=== PATIENT | female | born 1995 | race African-American/Black ===

== ENCOUNTER 2016-02-23 16:51 | Emergency (ER) | payer MEDICAID ==
[2014-11-29 07:16] VITALS: BMI 28.8
[~2016-02-23 16:51] MED LIST: FERROUS SULFAT325 MG PO; IBUPROFEN600 MG PO; PERCOCET 5-3251 TAB PO; PRENAVITE1 TAB PO
[2016-02-23 17:58] LABS: BASOPHILS 0.1 % (0.0-2.0); EOSINOPHILS 3.2 % (0-7); HEMATOCRIT 31.7 % (36.0-48.0); HEMOGLOBIN 9.7 g/dL (12-16); IMMATURE GRANULOCYTES 1.5 % (0-5); LYMPHOCYTES 12.3 % (15-50); MCH 24.7 pg (26.0-34.0); MCHC 30.6 g/dL (31.0-37.0); MCV 80.9 fL (80.0-100.0); MEAN PLATELET VOLUME 9.9 fL (7.4-10.4); MONOCYTES 11.6 % (2-11); NEUTROPHILS 71.3 % (40-80); PLATELET COUNT 188 10x3/uL (130-400); RBC 3.92 10x6/uL (4.00-5.40); RDW 13.5 % (11.5-14.5); WBC 7.8 10x3/uL (4.8-10.8)
[2016-02-23 18:23] LABS: ALKALINE PHOSPHATASE 87 U/L (46-116); ALT (SGPT) 15 U/L (10-68); BILIRUBIN - TOTAL 0.42 mg/dL (0.2-1.3); CALC OSMOLALITY 274 mosm/kg (275-300); CARBON DIOXIDE 25.5 mmol/L (21.0-32.0); CHLORIDE - SERUM 104 mmol/L (98-107); CREATININE - SERUM 0.3 mg/dL (0.6-1.3); GLUCOSE 79 mg/dL (74-106); POTASSIUM - SERUM 3.4 mmol/L (3.5-5.1); PROTEIN - SERUM 7.1 g/dL (6.4-8.2); SODIUM 140 mmol/L (136-145); UREA NITROGEN 4 mg/dL (7-18); eGFR NON AFRICAN AMERICAN > 90 mL/min (90-120)
[2016-03-11] MEDS ORDERED: ZOFRAN4 MG PO (11:01)
== END 2016-02-23 22:16 | disposition home or self-care (01) ==
LOC: D.ER 16:51
PROVIDERS: Physician Assistant
DX: J06.9 Acute upper respiratory infection, unspecified (principal)

== ENCOUNTER → 2016-03-11 10:14 | Outpatient (CLI) | payer MEDICAID ==
[2014-11-29 07:16] VITALS: BMI 28.8
[~2016-03-11 10:14] MED LIST changes: +ZOFRAN4 MG PO
[2016-03-11 11:24] LABS: APPEARANCE CLEAR (CLEAR); BILIRUBIN NEGATIVE (NEGATIVE); COLOR YELLOW (YELLOW); GLUCOSE NEGATIVE (NEGATIVE); KETONE NEGATIVE (NEGATIVE); LEUKOCYTE ESTERASE 1+ (NEGATIVE); NITRITE NEGATIVE (NEGATIVE); PROTEIN NEGATIVE (NEGATIVE); SPECIFIC GRAVITY 1.005 (1.005-1.020)
[2016-03-11 11:25] LABS: BACTERIA FEW /hpf (NONE SEEN); EPITHELIAL CELLS 0-5 /hpf (0-5); MUCUS <1+ /lpf (NONE SEEN)
== END | disposition home or self-care (01) ==
LOC: D.LDO 10:14
PROVIDERS: Obstetrics & Gynecology
DX: O26.90 Pregnancy related conditions, unspecified, unspecified trimester (principal); R11.2 Nausea with vomiting, unspecified; R10.30 Lower abdominal pain, unspecified

== ENCOUNTER → 2016-04-05 11:20 | Outpatient (CLI) | payer MEDICAID ==
[2014-11-29 07:16] VITALS: BMI 28.8
[2016-04-05 13:13] LABS: APPEARANCE CLOUDY (CLEAR); BILIRUBIN NEGATIVE (NEGATIVE); COLOR YELLOW (YELLOW); GLUCOSE 50 mg/dL (NEGATIVE); KETONE NEGATIVE (NEGATIVE); LEUKOCYTE ESTERASE TRACE (NEGATIVE); NITRITE NEGATIVE (NEGATIVE); PROTEIN NEGATIVE (NEGATIVE)
[2016-04-05 13:15] LABS: WHITE CELLS - URINE 0-5 /hpf (0-5)
[2016-04-05 13:16] LABS: AMORPHOUS SEDIMENT >1+ /lpf (NONE SEEN); BACTERIA FEW /hpf (NONE SEEN); EPITHELIAL CELLS 0-5 /hpf (0-5); RED CELLS - URINE 0-5 /hpf (0-5)
== END | disposition home or self-care (01) ==
LOC: D.LDO 11:20
PROVIDERS: Specialist
DX: Z34.83 Encounter for supervision of other normal pregnancy, third trimester (principal); Z3A.32 32 weeks gestation of pregnancy; R10.30 Lower abdominal pain, unspecified

== ENCOUNTER → 2016-04-08 15:55 | Outpatient (CLI) | payer MEDICAID ==
[2014-11-29 07:16] VITALS: BMI 28.8
== END | disposition home or self-care (01) ==
LOC: D.ER 15:55 → D.LDO 15:55
DX: O36.8130 Decreased fetal movements, third trimester, not applicable or unspecified (principal); Z3A.32 32 weeks gestation of pregnancy; O60.03 Preterm labor without delivery, third trimester

== ENCOUNTER 2016-04-19 21:57 | Outpatient (CLI) | payer SELFPAY ==
[2014-11-29 07:16] VITALS: BMI 28.8
[2016-04-19 23:22] LABS: APPEARANCE HAZY (CLEAR); BACTERIA FEW /hpf (NONE SEEN); BILIRUBIN NEGATIVE (NEGATIVE); COLOR YELLOW (YELLOW); EPITHELIAL CELLS 0-5 /hpf (0-5); GLUCOSE 50 mg/dL (NEGATIVE); KETONE NEGATIVE (NEGATIVE); LEUKOCYTE ESTERASE 1+ (NEGATIVE); NITRITE NEGATIVE (NEGATIVE); PROTEIN NEGATIVE (NEGATIVE); RED CELLS - URINE NONE SEEN /hpf (0-5); SPECIFIC GRAVITY 1.015 (1.005-1.020); UROBILINOGEN NORMAL (NORMAL)
== END 2016-04-19 23:58 | disposition home or self-care (01) ==
LOC: D.LDO 21:57 → D.LD 21:58 → D.LDO 23:58
PROVIDERS: Specialist
DX: Z34.83 Encounter for supervision of other normal pregnancy, third trimester (principal); Z3A.34 34 weeks gestation of pregnancy

== ENCOUNTER → 2016-04-24 19:50 | Outpatient (CLI) | payer SELFPAY ==
[2014-11-29 07:16] VITALS: BMI 28.8
[2016-04-24 20:47] LABS: APPEARANCE CLEAR (CLEAR); BILIRUBIN NEGATIVE (NEGATIVE); COLOR YELLOW (YELLOW); GLUCOSE NEGATIVE (NEGATIVE); KETONE NEGATIVE (NEGATIVE); LEUKOCYTE ESTERASE 1+ (NEGATIVE); NITRITE NEGATIVE (NEGATIVE); PROTEIN NEGATIVE (NEGATIVE); SPECIFIC GRAVITY 1.015 (1.005-1.020); UROBILINOGEN NORMAL (NORMAL)
[2016-04-24 20:48] LABS: RED CELLS - URINE 0-5 /hpf (0-5); WHITE CELLS - URINE 25-50 /hpf (0-5)
[2016-04-24 20:49] LABS: BACTERIA MODERATE /hpf (NONE SEEN); MUCUS <1+ /lpf (NONE SEEN)
[2016-04-27 03:08] LABS: CHLAMYDIA TRACHOMATIS, NAA Negative (Negative)
== END | disposition home or self-care (01) ==
LOC: D.LDO 19:50
PROVIDERS: Obstetrics & Gynecology
DX: Z34.83 Encounter for supervision of other normal pregnancy, third trimester (principal); Z3A.35 35 weeks gestation of pregnancy

== ENCOUNTER → 2016-04-28 22:41 | Outpatient (CLI) | payer SELFPAY ==
[2014-11-29 07:16] VITALS: BMI 28.8
== END | disposition home or self-care (01) ==
LOC: D.LDO 22:41
DX: O98.313 Other infections with a predominantly sexual mode of transmission complicating pregnancy, third trimester (principal); Z3A.35 35 weeks gestation of pregnancy

== ENCOUNTER → 2016-05-01 22:19 | Outpatient (CLI) | payer SELFPAY ==
[2014-11-29 07:16] VITALS: BMI 28.8
== END | disposition home or self-care (01) ==
LOC: D.LDO 22:19
DX: O26.899 Other specified pregnancy related conditions, unspecified trimester (principal); R10.30 Lower abdominal pain, unspecified; R10.2 Pelvic and perineal pain

== ENCOUNTER → 2016-05-04 19:52 | Outpatient (CLI) | payer SELFPAY ==
[2014-11-29 07:16] VITALS: BMI 28.8
[2016-05-04 20:08] LABS: APPEARANCE CLOUDY (CLEAR); BILIRUBIN NEGATIVE (NEGATIVE); COLOR YELLOW (YELLOW); GLUCOSE NEGATIVE (NEGATIVE); KETONE NEGATIVE (NEGATIVE); LEUKOCYTE ESTERASE 2+ (NEGATIVE); NITRITE NEGATIVE (NEGATIVE); PH 6.5 (5.0-6.0); PROTEIN NEGATIVE (NEGATIVE); SPECIFIC GRAVITY 1.015 (1.005-1.020); UROBILINOGEN NORMAL (NORMAL)
[2016-05-04 20:18] LABS: BACTERIA MANY /hpf (NONE SEEN); GRANULAR CAST OCC /lpf (NONE SEEN); HYALINE CAST OCC /lpf (NONE SEEN); MUCUS <1+ /lpf (NONE SEEN); RED CELLS - URINE OCC /hpf (0-5); WHITE CELLS - URINE >50 /hpf (0-5)
== END | disposition home or self-care (01) ==
LOC: D.LDO 19:52
PROVIDERS: Obstetrics & Gynecology
DX: Z34.83 Encounter for supervision of other normal pregnancy, third trimester (principal); Z3A.36 36 weeks gestation of pregnancy

== ENCOUNTER 2016-05-10 22:11 | Outpatient (CLI) | payer MEDICAID ==
[2014-11-29 07:16] VITALS: BMI 28.8
[2016-05-10 23:11] LABS: APPEARANCE HAZY (CLEAR); BACTERIA MANY /hpf (NONE SEEN); BILIRUBIN NEGATIVE (NEGATIVE); COLOR YELLOW (YELLOW); EPITHELIAL CELLS 0-5 /hpf (0-5); GLUCOSE NEGATIVE (NEGATIVE); KETONE NEGATIVE (NEGATIVE); LEUKOCYTE ESTERASE 2+ (NEGATIVE); NITRITE NEGATIVE (NEGATIVE); PROTEIN TRACE mg/dL (NEGATIVE); RED CELLS - URINE 0-5 /hpf (0-5); UROBILINOGEN NORMAL (NORMAL); WHITE CELLS - URINE >50 /hpf (0-5)
== END 2016-05-11 00:09 ==
LOC: D.LDO 22:11 → D.LD 23:51 → D.LDO 05-11 00:09
PROVIDERS: Specialist
DX: O26.899 Other specified pregnancy related conditions, unspecified trimester (principal); R10.2 Pelvic and perineal pain

== ENCOUNTER → 2016-05-15 21:20 | Outpatient (CLI) | payer MEDICAID ==
[2016-05-15 21:59] LABS: APPEARANCE HAZY (CLEAR); BILIRUBIN NEGATIVE (NEGATIVE); COLOR YELLOW (YELLOW); GLUCOSE 100 mg/dL (NEGATIVE); KETONE NEGATIVE (NEGATIVE); LEUKOCYTE ESTERASE 2+ (NEGATIVE); NITRITE NEGATIVE (NEGATIVE); PROTEIN NEGATIVE (NEGATIVE); SPECIFIC GRAVITY 1.015 (1.005-1.020); UROBILINOGEN NORMAL (NORMAL)
[2016-05-15 22:01] LABS: BACTERIA MANY /hpf (NONE SEEN); MUCUS <1+ /lpf (NONE SEEN); RED CELLS - URINE 0-5 /hpf (0-5); WHITE CELLS - URINE >50 /hpf (0-5)
== END | disposition home or self-care (01) ==
LOC: D.LDO 21:20
PROVIDERS: Obstetrics & Gynecology
DX: Z34.83 Encounter for supervision of other normal pregnancy, third trimester (principal); R10.2 Pelvic and perineal pain; Z3A.38 38 weeks gestation of pregnancy

== ENCOUNTER → 2016-05-24 15:51 | Outpatient (CLI) | payer MEDICAID ==
[2014-11-29 07:16] VITALS: BMI 28.8
[2016-05-24 17:40] LABS: APPEARANCE HAZY (CLEAR); BILIRUBIN NEGATIVE (NEGATIVE); COLOR YELLOW (YELLOW); GLUCOSE NEGATIVE (NEGATIVE); KETONE NEGATIVE (NEGATIVE); LEUKOCYTE ESTERASE 2+ (NEGATIVE); NITRITE NEGATIVE (NEGATIVE); PROTEIN TRACE mg/dL (NEGATIVE)
[2016-05-24 17:41] LABS: BACTERIA MANY /hpf (NONE SEEN); RED CELLS - URINE 0-5 /hpf (0-5); WHITE CELLS - URINE >50 /hpf (0-5)
[2016-05-24 17:42] LABS: MUCUS <1+ /lpf (NONE SEEN)
== END | disposition home or self-care (01) ==
LOC: D.LDO 15:51
PROVIDERS: Obstetrics & Gynecology
DX: Z34.83 Encounter for supervision of other normal pregnancy, third trimester (principal); Z3A.39 39 weeks gestation of pregnancy; M54.9 Dorsalgia, unspecified; N85.8 Other specified noninflammatory disorders of uterus

== ENCOUNTER 2016-06-01 02:46 | Emergency (ER) | payer MEDICAID ==
[2014-11-29 07:16] VITALS: BMI 28.8
== END 2016-06-01 04:00 | disposition home or self-care (01) ==
LOC: D.ER 02:46
DX: G89.18 Other acute postprocedural pain (principal)

== ENCOUNTER 2016-06-06 18:52 | Emergency (ER) | payer MEDICAID ==
[2016-06-06 21:35] LABS: HCG URINE NEGATIVE (NEGATIVE)
[2016-06-06 21:38] LABS: APPEARANCE CLOUDY (CLEAR); BILIRUBIN NEGATIVE (NEGATIVE); COLOR DK YELLOW (YELLOW); GLUCOSE NEGATIVE (NEGATIVE); KETONE NEGATIVE (NEGATIVE); LEUKOCYTE ESTERASE 1+ (NEGATIVE); NITRITE NEGATIVE (NEGATIVE); PROTEIN 1+ mg/dL (NEGATIVE); UROBILINOGEN NORMAL (NORMAL)
[2016-06-06 21:42] LABS: BACTERIA MODERATE /hpf (NONE SEEN); EPITHELIAL CELLS 0-5 /hpf (0-5); MUCUS <1+ /lpf (NONE SEEN)
== END 2016-06-06 22:20 | disposition home or self-care (01) ==
LOC: D.ER 18:52
PROVIDERS: Emergency Medicine
DX: S39.012A Strain of muscle, fascia and tendon of lower back, initial encounter (principal); X58.XXXA Exposure to other specified factors, initial encounter; Y93.89 Activity, other specified; Y92.89 Other specified places as the place of occurrence of the external cause; M62.838 Other muscle spasm; N39.0 Urinary tract infection, site not specified

== ENCOUNTER 2016-07-31 19:45 | Emergency (ER) | payer MEDICAID ==
[2014-11-29 07:16] VITALS: BMI 28.8
== END 2016-08-01 05:16 | disposition home or self-care (01) ==
LOC: D.ER 19:45
DX: T78.40XA Allergy, unspecified, initial encounter (principal); X58.XXXA Exposure to other specified factors, initial encounter; M25.50 Pain in unspecified joint

== ENCOUNTER 2016-09-17 18:59 | Emergency (ER) | payer MEDICAID ==
[2014-11-29 07:16] VITALS: BMI 28.8
== END 2016-09-17 19:37 | disposition left against medical advice (07) ==
LOC: D.ER 18:59
DX: N76.0 Acute vaginitis (principal)

== ENCOUNTER 2016-12-12 15:32 | Emergency (ER) | payer MEDICAID ==
[2014-11-29 07:16] VITALS: BMI 28.8
== END 2016-12-12 16:53 | disposition home or self-care (01) ==
LOC: D.ER 15:32
DX: L25.9 Unspecified contact dermatitis, unspecified cause (principal)

== ENCOUNTER 2017-01-08 10:54 | Emergency (ER) | payer MEDICAID ==
[2014-11-29 07:16] VITALS: BMI 28.8
== END 2017-01-08 13:36 | disposition home or self-care (01) ==
LOC: D.ER 10:54
DX: L70.0 Acne vulgaris (principal); M79.652 Pain in left thigh; M79.651 Pain in right thigh

== ENCOUNTER 2017-02-28 15:57 | Emergency (ER) | payer MEDICAID ==
[2014-11-29 07:16] VITALS: BMI 28.8
[2017-02-28 18:19] LABS: APPEARANCE CLEAR (CLEAR); COLOR YELLOW (YELLOW)
[2017-02-28 18:20] LABS: BILIRUBIN NEGATIVE (NEGATIVE); GLUCOSE NEGATIVE (NEGATIVE); KETONE NEGATIVE (NEGATIVE); NITRITE NEGATIVE (NEGATIVE); PROTEIN NEGATIVE (NEGATIVE); UROBILINOGEN NORMAL (NORMAL)
[2017-02-28 18:22] LABS: RED CELLS - URINE 0-5 /hpf (0-5); WHITE CELLS - URINE 25-50 /hpf (0-5)
[2017-02-28 18:23] LABS: BACTERIA MODERATE /hpf (NONE SEEN)
== END 2017-02-28 18:16 | disposition home or self-care (01) ==
LOC: D.ER 15:57
PROVIDERS: Nurse Practitioner Family
DX: S39.012A Strain of muscle, fascia and tendon of lower back, initial encounter (principal); X58.XXXA Exposure to other specified factors, initial encounter; Y93.89 Activity, other specified; Y92.89 Other specified places as the place of occurrence of the external cause; L25.9 Unspecified contact dermatitis, unspecified cause

== ENCOUNTER 2017-03-12 16:12 | Emergency (ER) | payer MEDICAID ==
[2014-11-29 07:16] VITALS: BMI 28.8
== END 2017-03-12 17:52 | disposition home or self-care (01) ==
LOC: D.ER 16:12
DX: S39.012A Strain of muscle, fascia and tendon of lower back, initial encounter (principal); X58.XXXA Exposure to other specified factors, initial encounter; Y93.89 Activity, other specified; Y92.89 Other specified places as the place of occurrence of the external cause; M62.838 Other muscle spasm

== ENCOUNTER 2017-03-18 13:55 | Emergency (ER) | payer MEDICAID ==
[2014-11-29 07:16] VITALS: BMI 28.8
[2017-03-18 16:29] LABS: HCG URINE NEGATIVE (NEGATIVE)
[2017-03-18 16:30] LABS: APPEARANCE CLEAR (CLEAR); BILIRUBIN NEGATIVE (NEGATIVE); COLOR YELLOW (YELLOW); GLUCOSE NEGATIVE (NEGATIVE); KETONE NEGATIVE (NEGATIVE); NITRITE NEGATIVE (NEGATIVE); PROTEIN NEGATIVE (NEGATIVE); SPECIFIC GRAVITY 1.015 (1.005-1.020); UROBILINOGEN NORMAL (NORMAL)
[2017-03-18 16:36] LABS: BASOPHILS 0.8 % (0-2); EOSINOPHILS 3.6 % (0-7); HEMATOCRIT 33.1 % (36.0-48.0); HEMOGLOBIN 10.2 g/dL (12-16); IMMATURE GRANULOCYTES 0.2 % (0-5); LYMPHOCYTES 39.7 % (15-50); MCH 23.8 pg (26.0-34.0); MCHC 30.8 g/dL (31.0-37.0); MCV 77.3 fL (80.0-100.0); MEAN PLATELET VOLUME 9.2 fL (7.4-10.4); MONOCYTES 5.2 % (2-11); NEUTROPHILS 50.5 % (40-80); RBC 4.28 10x6/uL (4.00-5.40); RDW 13.3 % (11.5-14.5); WBC 6.3 10x3/uL (4.8-10.8)
[2017-03-18 16:40] LABS: BACTERIA FEW /hpf (NONE SEEN); EPITHELIAL CELLS 0-5 /hpf (0-5); RED CELLS - URINE OCC /hpf (0-5)
[2017-03-18 16:57] LABS: ALBUMIN 3.8 g/dL (3.4-5.0); ALKALINE PHOSPHATASE 122 U/L (46-116); ALT (SGPT) 27 U/L (10-68); AMYLASE - SERUM 80 U/L (25-115); BILIRUBIN - TOTAL 0.29 mg/dL (0.2-1.3); CALC OSMOLALITY 279 mosm/kg (275-300); CALCIUM 8.7 mg/dL (8.5-10.1); CARBON DIOXIDE 24.8 mmol/L (21.0-32.0); CHLORIDE - SERUM 108 mmol/L (98-107); CREATININE - SERUM 0.5 mg/dL (0.6-1.3); GLUCOSE 88 mg/dL (74-106); LIPASE 150 U/L (73-393); POTASSIUM - SERUM 3.8 mmol/L (3.5-5.1); PROTEIN - SERUM 7.5 g/dL (6.4-8.2); SODIUM 142 mmol/L (136-145); UREA NITROGEN 7 mg/dL (7-18); eGFR NON AFRICAN AMERICAN > 90 mL/min (90-120)
[2017-03-18 17:05] LABS: PLATELET COUNT 300 10x3/uL (130-400)
== END 2017-03-18 18:26 | disposition home or self-care (01) ==
LOC: D.ER 13:55
PROVIDERS: Family Medicine
DX: N39.0 Urinary tract infection, site not specified (principal); K59.00 Constipation, unspecified

== ENCOUNTER 2017-08-05 18:26 | Emergency (ER) | payer MEDICAID ==
[~2017-08-05] VITALS: Ht 167.6 cm; Wt 56.8 kg
[2017-08-05 18:46] VITALS: Ht 167.6 cm; Wt 56.8 kg
[2017-08-05] MEDS ORDERED: IBUPROFEN800 MG PO (18:49)
[2017-08-05] MEDS ORDERED: ALEVE220 MG PO (18:49)
[2017-08-05] MEDS ORDERED: ACETAMINOPHEN325 MG PO (18:49)
[2017-08-05 19:26] LABS: APPEARANCE CLEAR (CLEAR); BILIRUBIN NEGATIVE (NEGATIVE); COLOR YELLOW (YELLOW); GLUCOSE NEGATIVE (NEGATIVE); KETONE NEGATIVE (NEGATIVE); NITRITE NEGATIVE (NEGATIVE); PROTEIN TRACE mg/dL (NEGATIVE); SPECIFIC GRAVITY 1.015 (1.005-1.020); UROBILINOGEN NORMAL (NORMAL)
[2017-08-05 19:27] LABS: BACTERIA MODERATE /hpf (NONE SEEN); EPITHELIAL CELLS 0-5 /hpf (0-5); MUCUS <1+ /lpf (NONE SEEN); RED CELLS - URINE 0-5 /hpf (0-5)
[2017-08-05] MEDS ORDERED: NAPROSYN500 MG PO (22:54)
[2017-08-05 23:15] VITALS: BP 104/60
== END 2017-08-05 23:16 | disposition home or self-care (01) ==
LOC: D.ER 18:26
PROVIDERS: Family Medicine
DX: M54.5 Low back pain (principal)

== ENCOUNTER 2017-08-16 13:23 | Emergency (ER) | payer MEDICAID ==
[~2017-08-16] VITALS: Ht 167.6 cm; Wt 64.5 kg
[~2017-08-16 13:23] MED LIST changes: +ACETAMINOPHEN325 MG PO; +ALEVE220 MG PO; +IBUPROFEN800 MG PO; +NAPROSYN500 MG PO
[2017-08-16 13:36] VITALS: Ht 167.6 cm; Wt 64.5 kg
[2017-08-16] MEDS ORDERED: ALEVE220 MG PO (13:39)
[2017-08-16] MEDS ORDERED: TYLENOL #4 W/CO1 TAB PO (16:19)
[2017-08-16 16:26] VITALS: BP 128/69
== END 2017-08-16 16:27 | disposition home or self-care (01) ==
LOC: D.ER 13:23
DX: M54.5 Low back pain (principal)

== ENCOUNTER 2017-10-23 12:50 | Emergency (ER) | payer MEDICAID ==
[~2017-10-23] VITALS: Ht 167.6 cm; Wt 59.1 kg
[~2017-10-23 12:50] MED LIST changes: +TYLENOL #4 W/CO1 TAB PO
[2017-10-23 13:12] VITALS: Ht 167.6 cm; Wt 59.1 kg
[2017-10-23] MEDS ORDERED: EC-NAPROSYN500 MG PO (14:36)
[2017-10-23 14:50] VITALS: BP 121/67
== END 2017-10-23 14:52 | disposition home or self-care (01) ==
LOC: D.ER 12:50
DX: M54.5 Low back pain (principal)

== ENCOUNTER 2017-11-18 18:26 | Emergency (ER) | payer MEDICAID ==
[~2017-11-18] VITALS: Ht 167.6 cm; Wt 59.5 kg
[~2017-11-18 18:26] MED LIST changes: +EC-NAPROSYN500 MG PO
[2017-11-18 18:38] VITALS: Ht 167.6 cm; Wt 59.5 kg
[2017-11-18] MEDS ORDERED: VOLTAREN75 MG PO (19:37)
[2017-11-18 19:55] VITALS: BP 110/60
== END 2017-11-18 19:55 | disposition home or self-care (01) ==
LOC: D.ER 18:26
DX: R51 Headache (principal)

== ENCOUNTER 2018-03-09 13:30 | Emergency (ER) | payer MEDICAID ==
[~2018-03-09] VITALS: Ht 167.6 cm; Wt 55.0 kg
[~2018-03-09 13:30] MED LIST changes: +VOLTAREN75 MG PO
[2018-03-09 13:35] VITALS: Ht 167.6 cm; Wt 55.0 kg
[2018-03-09 15:16] LABS: APPEARANCE CLEAR (CLEAR); BILIRUBIN NEGATIVE (NEGATIVE); COLOR YELLOW (YELLOW); GLUCOSE NEGATIVE (NEGATIVE); KETONE NEGATIVE (NEGATIVE); NITRITE NEGATIVE (NEGATIVE); PROTEIN NEGATIVE (NEGATIVE); UROBILINOGEN NORMAL (NORMAL)
[2018-03-09 15:21] LABS: EPITHELIAL CELLS 0-5 /hpf (0-5); RED CELLS - URINE 25-50 /hpf (0-5); WHITE CELLS - URINE 0-5 /hpf (0-5)
[2018-03-09 15:22] LABS: BACTERIA FEW /hpf (NONE SEEN)
[2018-03-09 17:34] LABS: EOSINOPHILS 3.5 % (0-7); HEMATOCRIT 35.2 % (36.0-48.0); HEMOGLOBIN 10.8 g/dL (12-16); LYMPHOCYTES 49.3 % (15-50); MCHC 30.7 g/dL (31.0-37.0); MCV 68.3 fL (80.0-100.0); MEAN PLATELET VOLUME 9.6 fL (7.4-10.4); NEUTROPHILS 42.2 % (40-80); PLATELET COUNT 257 10x3/uL (130-400); RBC 5.15 10x6/uL (4.00-5.40); RDW 17.8 % (11.5-14.5)
[2018-03-09 17:59] LABS: ALBUMIN 4.1 g/dL (3.4-5.0); ALKALINE PHOSPHATASE 85 U/L (46-116); ALT (SGPT) 23 U/L (10-68); BILIRUBIN - TOTAL 0.31 mg/dL (0.2-1.3); CALC OSMOLALITY 277 mosm/kg (275-300); CALCIUM 9.7 mg/dL (8.5-10.1); CARBON DIOXIDE 23.3 mmol/L (21.0-32.0); CHLORIDE - SERUM 105 mmol/L (98-107); CREATININE - SERUM 0.6 mg/dL (0.6-1.3); GLUCOSE 78 mg/dL (74-106); POTASSIUM - SERUM 3.9 mmol/L (3.5-5.1); PROTEIN - SERUM 8.3 g/dL (6.4-8.2); SODIUM 141 mmol/L (136-145); UREA NITROGEN 7 mg/dL (7-18); eGFR NON AFRICAN AMERICAN > 90 mL/min (90-120)
[2018-03-09 18:12] LABS: CKMB 0.3 U/L (0.0-3.6); CREATINE KINASE 57 UL (21-215); TROPONIN-I < 0.017 ng/mL (0.000-0.060)
[2018-03-09 19:43] LABS: HCG URINE NEGATIVE (NEGATIVE)
[2018-03-09] MEDS ORDERED: TORADOL10 MG PO (21:04)
[2018-03-09 21:30] VITALS: BP 102/64
== END 2018-03-09 21:32 | disposition home or self-care (01) ==
LOC: D.ER 13:30
PROVIDERS: Family Medicine
DX: R07.89 Other chest pain (principal); M54.5 Low back pain; R09.1 Pleurisy; R00.2 Palpitations; R06.02 Shortness of breath

== ENCOUNTER 2018-07-12 20:09 | Emergency (ER) | payer MEDICAID ==
[~2018-07-12 20:09] MED LIST changes: +TORADOL10 MG PO
[2018-07-12 20:34] VITALS: BMI 19.5
[2018-07-12] MEDS ORDERED: CLEOCIN HCL300 MG PO (21:14)
[2018-07-12 21:25] VITALS: BP 122/69
== END 2018-07-12 21:25 | disposition home or self-care (01) ==
LOC: D.ER 20:09
DX: T24.212A Burn of second degree of left thigh, initial encounter (principal); X10.2XXA Contact with fats and cooking oils, initial encounter; Y93.89 Activity, other specified; Y92.89 Other specified places as the place of occurrence of the external cause

== ENCOUNTER 2018-07-29 21:48 | Emergency (ER) | payer OTHER ==
[~2018-07-29] VITALS: Ht 167.6 cm; Wt 55.0 kg
[~2018-07-29 21:48] MED LIST changes: +CLEOCIN HCL300 MG PO
[2018-07-29 22:19] VITALS: Ht 167.6 cm; Wt 55.0 kg
[2018-07-29] MEDS ORDERED: [UNRECOGNIZED DRUG - OTHER] (22:21)
--- NOTE | 2018-07-30 00:46 | NUR ---
SUICIDE ASSESSMENT COMPLETED AND DR. MARTINEZ NOTIFIED OF FINDING. PT IS A LOW RISK PER DR. MARTINEZ. PT STATED SHE IS HAVING ISSUES WITH HER FAMILY. PT SEES A THERAPIST ROUTINELY. PT TOOK A HANDFUL OF PILLS WHEN SHE WAS 16 BUT SHE STATED SINCE THE OF HER DAUGHTER SHE HAS BEEN FINE WITH HER THERAPIST. PT STATED SHE DOES HAVE ISSUES CONTROLLING HER TEMPER AND GETS MAD AT TIMES. RESOURCES GIVEN AND REVIEWED WITH THE PT. PT VERBALIZED UNDERSTANDING.
[2018-07-30] MEDS ORDERED: TYLENOL W/CODEI1 TAB PO (01:27)
[2018-07-30 01:49] VITALS: BP 113/52
== END 2018-07-30 01:46 | disposition home or self-care (01) ==
LOC: D.ER 21:48
DX: M54.5 Low back pain (principal); R07.89 Other chest pain; W18.30XA Fall on same level, unspecified, initial encounter; Y93.89 Activity, other specified; Y92.89 Other specified places as the place of occurrence of the external cause

== ENCOUNTER 2018-07-30 17:07 | Emergency (ER) | payer OTHER ==
[~2018-07-30 17:07] MED LIST changes: +TYLENOL W/CODEI1 TAB PO; +[UNRECOGNIZED DRUG - OTHER]
[2018-07-30 17:20] VITALS: BMI 19.5
[2018-07-30 17:48] LABS: UDS - AMPHET NEGATIVE QUAL (NEGATIVE); UDS - BARB NEGATIVE QUAL (NEGATIVE); UDS - BENZO NEGATIVE QUAL (NEGATIVE); UDS - COCAINE NEGATIVE QUAL (NEGATIVE); UDS - OPIATE NEGATIVE QUAL (NEGATIVE); UDS - PCP NEGATIVE QUAL (NEGATIVE); UDS - THC NEGATIVE QUAL (NEGATIVE)
[2018-07-30 17:52] LABS: APPEARANCE CLEAR (CLEAR); BILIRUBIN NEGATIVE (NEGATIVE); COLOR STRAW (YELLOW); GLUCOSE NEGATIVE (NEGATIVE); KETONE NEGATIVE (NEGATIVE); NITRITE NEGATIVE (NEGATIVE); PROTEIN NEGATIVE (NEGATIVE); UROBILINOGEN NORMAL (NORMAL)
[2018-07-30 18:14] LABS: HEMATOCRIT 34.3 % (36.0-48.0); HEMOGLOBIN 10.3 g/dL (12-16); MCH 20.7 pg (26.0-34.0); MEAN PLATELET VOLUME 9.3 fL (7.4-10.4); RBC 4.97 10x6/uL (4.00-5.40); RDW 16.5 % (11.5-14.5); WBC 8.5 10x3/uL (4.8-10.8)
[2018-07-30 18:16] LABS: PLATELET COUNT 361 10x3/uL (130-400)
[2018-07-30 18:21] LABS: HCG SERUM NEGATIVE (NEGATIVE)
[2018-07-30 18:28] LABS: ALBUMIN 3.7 g/dL (3.4-5.0); ALKALINE PHOSPHATASE 100 U/L (46-116); ALT (SGPT) 21 U/L (10-68); BILIRUBIN - TOTAL 0.28 mg/dL (0.2-1.3); CALC OSMOLALITY 274 mosm/kg (275-300); CALCIUM 9.2 mg/dL (8.5-10.1); CARBON DIOXIDE 26.4 mmol/L (21.0-32.0); CHLORIDE - SERUM 104 mmol/L (98-107); CREATININE - SERUM 0.6 mg/dL (0.6-1.3); GLUCOSE 87 mg/dL (74-106); POTASSIUM - SERUM 3.7 mmol/L (3.5-5.1); PROTEIN - SERUM 8.6 g/dL (6.4-8.2); SODIUM 138 mmol/L (136-145); UREA NITROGEN 13 mg/dL (7-18); eGFR NON AFRICAN AMERICAN > 90 mL/min (90-120)
[2018-07-30 18:29] LABS: MAGNESIUM - SERUM 2.1 mg/dL (1.8-2.4)
[2018-07-30 18:32] LABS: EOSINOPHILS 2 % (0-7); LYMPHOCYTES 25 % (15-50); MONOCYTES 3 % (2-11); NEUTROPHILS 70 % (40-80)
[2018-07-30 18:33] LABS: PLATELET ESTIMATE NORMAL
--- NOTE | 2018-07-30 19:20 | NUR ---
The patient does rate high on her suicide assessment and she will require a 1:1 obsservation.
[2018-07-31 03:40] VITALS: BP 122/74
== END 2018-07-31 05:00 ==
LOC: D.ER 17:07
PROVIDERS: Family Medicine
DX: F32.9 Major depressive disorder, single episode, unspecified (principal)

== ENCOUNTER 2019-02-03 20:55 | Emergency (ER) | payer OTHER ==
[~2019-02-03] VITALS: Ht 167.6 cm; Wt 84.5 kg
[2019-02-03 21:03] VITALS: Ht 167.6 cm; Wt 84.5 kg
[2019-02-03 21:48] LABS: APPEARANCE CLEAR (CLEAR); COLOR YELLOW (YELLOW); GLUCOSE NEGATIVE (NEGATIVE); KETONE NEGATIVE (NEGATIVE); NITRITE NEGATIVE (NEGATIVE); PROTEIN NEGATIVE (NEGATIVE); SPECIFIC GRAVITY 1.015 (1.005-1.020); UROBILINOGEN NORMAL (NORMAL)
[2019-02-03 21:49] LABS: BILIRUBIN NEGATIVE (NEGATIVE)
[2019-02-03 21:50] LABS: BACTERIA FEW /hpf (NEGATIVE); EPITHELIAL CELLS 0-5 /hpf (0-5); HCG URINE NEGATIVE (NEGATIVE); RED CELLS - URINE OCC /hpf (0-5)
[2019-02-03] MEDS ORDERED: DICLOFENAC SODI50 MG PO (23:30)
[2019-02-03 23:52] VITALS: BP 106/63
== END 2019-02-03 23:53 | disposition home or self-care (01) ==
LOC: D.ER 20:55
PROVIDERS: Family Medicine
DX: R20.2 Paresthesia of skin (principal); V89.2XXA Person injured in unspecified motor-vehicle accident, traffic, initial encounter

== ENCOUNTER 2019-04-26 15:53 | Emergency (ER) | payer SELFPAY ==
[~2019-04-26] VITALS: Ht 167.6 cm; Wt 84.5 kg
[~2019-04-26 15:53] MED LIST changes: +DICLOFENAC SODI50 MG PO
[2019-04-26 15:56] VITALS: Ht 167.6 cm; Wt 84.5 kg
[2019-04-26 16:46] LABS: BILIRUBIN NEGATIVE (NEGATIVE); GLUCOSE NEGATIVE (NEGATIVE); KETONE NEGATIVE (NEGATIVE); NITRITE NEGATIVE (NEGATIVE); SPECIFIC GRAVITY 1.015 (1.005-1.020); UROBILINOGEN NORMAL (NORMAL)
[2019-04-26 16:48] LABS: BACTERIA FEW /hpf (NEGATIVE); EPITHELIAL CELLS 0-5 /hpf (0-5); RED CELLS - URINE 0-5 /hpf (0-5); WHITE CELLS - URINE >50 /hpf (NEGATIVE)
[2019-04-26 17:35] LABS: HCG URINE POSITIVE (NEGATIVE)
[2019-04-26] MEDS ORDERED: MACROBID100 MG PO (21:02)
[2019-04-26] MEDS ORDERED: MIRALAX17 GM PO (21:05)
[2019-04-26] MEDS ORDERED: PRENAVITE1 TAB PO (21:05)
[2019-04-26 21:24] VITALS: BP 107/68
== END 2019-04-26 21:24 | disposition home or self-care (01) ==
LOC: D.ER 15:53
PROVIDERS: Family Medicine
DX: O26.891 Other specified pregnancy related conditions, first trimester (principal); Z3A.08 8 weeks gestation of pregnancy; N39.0 Urinary tract infection, site not specified; R10.9 Unspecified abdominal pain

== ENCOUNTER 2019-07-10 19:35 | Emergency (ER) | payer MEDICAID ==
[~2019-07-10] VITALS: Ht 167.6 cm; Wt 100.0 kg
[~2019-07-10 19:35] MED LIST changes: +MACROBID100 MG PO; +MIRALAX17 GM PO
[2019-07-10 19:46] VITALS: Ht 167.6 cm; Wt 100.0 kg
[2019-07-10 19:53] LABS: BASOPHILS 0.2 % (0-2); EOSINOPHILS 1.7 % (0-7); HEMATOCRIT 34.6 % (36.0-48.0); HEMOGLOBIN 10.9 g/dL (12-16); IMMATURE GRANULOCYTES 0.3 % (0-5); LYMPHOCYTES 28.3 % (15-50); MCH 24.4 pg (26.0-34.0); MCHC 31.5 g/dL (31.0-37.0); MCV 77.4 fL (80.0-100.0); MEAN PLATELET VOLUME 9.7 fL (7.4-10.4); NEUTROPHILS 61.5 % (40-80); RBC 4.47 10x6/uL (4.00-5.40); RDW 14.6 % (11.5-14.5); WBC 9.2 10x3/uL (4.8-10.8)
[2019-07-10 20:02] LABS: CALC OSMOLALITY 263 mosm/kg (275-300); CARBON DIOXIDE 25.3 mmol/L (21.0-32.0); CHLORIDE - SERUM 102 mmol/L (98-107); CREATININE - SERUM 0.6 mg/dL (0.6-1.3); GLUCOSE 83 mg/dL (74-106); PLATELET COUNT 231 10x3/uL (130-400); POTASSIUM - SERUM 3.2 mmol/L (3.5-5.1); SODIUM 134 mmol/L (136-145); UREA NITROGEN 4 mg/dL (7-18); eGFR NON AFRICAN AMERICAN > 90 mL/min (90-120)
[2019-07-10 20:17] LABS: BILIRUBIN NEGATIVE (NEGATIVE); GLUCOSE NEGATIVE (NEGATIVE); KETONE NEGATIVE (NEGATIVE); NITRITE NEGATIVE (NEGATIVE); SPECIFIC GRAVITY 1.015 (1.005-1.020); UROBILINOGEN NORMAL (NORMAL)
[2019-07-10 20:21] LABS: BACTERIA MODERATE /hpf (NEGATIVE); RED CELLS - URINE NONE SEEN /hpf (0-5)
[2019-07-10 20:22] LABS: AMORPHOUS SEDIMENT >1+ /lpf (NONE SEEN)
[2019-07-10] MEDS ORDERED: MACROBID100 MG PO (20:24)
[2019-07-10 20:28] LABS: ALKALINE PHOSPHATASE 78 U/L (30-120); ALT (SGPT) 12 U/L (10-68); BILIRUBIN - TOTAL 0.32 mg/dL (0.2-1.3); HCG - QUANTITATIVE (MATERNAL) 11617 mIU/mL; PROTEIN - SERUM 7.7 g/dL (6.4-8.2)
[2019-07-10 21:30] VITALS: BP 108/53
== END 2019-07-10 22:40 | disposition home or self-care (01) ==
LOC: D.ER 19:35
PROVIDERS: Family Medicine
DX: O20.9 Hemorrhage in early pregnancy, unspecified (principal); O23.42 Unspecified infection of urinary tract in pregnancy, second trimester; Z3A.18 18 weeks gestation of pregnancy; R51 Headache; R42 Dizziness and giddiness; R11.2 Nausea with vomiting, unspecified

== ENCOUNTER 2019-08-08 00:52 | Outpatient (CLI) | payer MEDICAID ==
[2019-07-10 19:46] VITALS: BMI 35.6
[2019-08-08 01:45] LABS: BILIRUBIN NEGATIVE (NEGATIVE); EPITHELIAL CELLS 0-5 /hpf (0-5); GLUCOSE NEGATIVE (NEGATIVE); KETONE NEGATIVE (NEGATIVE); NITRITE NEGATIVE (NEGATIVE); UROBILINOGEN NORMAL (NORMAL); WHITE CELLS - URINE 0-5 /hpf (NEGATIVE)
== END 2019-08-08 03:00 ==
LOC: D.LDO 00:52
PROVIDERS: ATTEND Obstetrics & Gynecology
DX: O26.899 Other specified pregnancy related conditions, unspecified trimester (principal); Z3A.00 Weeks of gestation of pregnancy not specified

== ENCOUNTER 2019-08-24 14:51 | Outpatient (CLI) | payer MEDICAID ==
[2019-07-10 19:46] VITALS: BMI 35.6
[2019-08-24 15:51] LABS: BILIRUBIN NEGATIVE (NEGATIVE); GLUCOSE NEGATIVE (NEGATIVE); KETONE NEGATIVE (NEGATIVE); NITRITE NEGATIVE (NEGATIVE); UROBILINOGEN NORMAL (NORMAL)
[2019-08-24 15:54] LABS: BACTERIA MANY /hpf (NEGATIVE); RED CELLS - URINE OCC /hpf (0-5)
[2019-08-24 15:55] LABS: UDS - AMPHET NEGATIVE QUAL (NEGATIVE); UDS - BARB NEGATIVE QUAL (NEGATIVE); UDS - BENZO NEGATIVE QUAL (NEGATIVE); UDS - COCAINE NEGATIVE QUAL (NEGATIVE); UDS - OPIATE NEGATIVE QUAL (NEGATIVE); UDS - PCP NEGATIVE QUAL (NEGATIVE); UDS - THC NEGATIVE QUAL (NEGATIVE)
--- NOTE | 2019-08-24 16:35 | NUR ---
SUICIDE ASSESSMENT COMPLETED. ASSESSMENT AND FINDINGS REPORTED TO DR. MARTINEZ. PT IS LOW RISK PER DR. MARTINEZ. RESOURCES REVIEWED AND PT VERBALIZED UNDERSTANDING. PT DENIES SI AT THIS TIME. NO FURTHER ORDERS NOTED.
== END 2019-08-24 16:48 | disposition home or self-care (01) ==
LOC: D.LDO 14:51
PROVIDERS: ATTEND Obstetrics & Gynecology
DX: O26.899 Other specified pregnancy related conditions, unspecified trimester (principal); Z3A.00 Weeks of gestation of pregnancy not specified

== ENCOUNTER 2019-09-10 23:55 | Outpatient (CLI) | payer MEDICAID ==
[2019-07-10 19:46] VITALS: BMI 35.6
[2019-09-11 00:58] LABS: AMORPHOUS SEDIMENT >1+ /lpf (NONE SEEN); BILIRUBIN NEGATIVE (NEGATIVE); EPITHELIAL CELLS 0-5 /hpf (0-5); GLUCOSE NEGATIVE (NEGATIVE); KETONE SMALL mg/dL (NEGATIVE); NITRITE NEGATIVE (NEGATIVE); UROBILINOGEN NORMAL (NORMAL); WHITE CELLS - URINE 0-5 /hpf (NEGATIVE)
== END 2019-09-11 01:30 | disposition home or self-care (01) ==
LOC: D.LDO 23:55 → D.LD 23:57 → D.LDO 09-11 00:21
PROVIDERS: ATTEND Student in an Organized Health Care Education/Training Program
DX: O26.892 Other specified pregnancy related conditions, second trimester (principal); Z3A.27 27 weeks gestation of pregnancy; R10.9 Unspecified abdominal pain; R20.0 Anesthesia of skin

== ENCOUNTER 2019-09-19 11:20 | Outpatient (CLI) | payer MEDICAID ==
[2019-07-10 19:46] VITALS: BMI 35.6
[2019-09-19 12:50] LABS: BILIRUBIN NEGATIVE (NEGATIVE); GLUCOSE NEGATIVE (NEGATIVE); KETONE NEGATIVE (NEGATIVE); NITRITE NEGATIVE (NEGATIVE); UROBILINOGEN NORMAL (NORMAL)
[2019-09-19 12:51] LABS: BACTERIA MODERATE /hpf (NEGATIVE); EPITHELIAL CELLS 0-5 /hpf (0-5); RED CELLS - URINE 0-5 /hpf (0-5); WHITE CELLS - URINE 0-5 /hpf (NEGATIVE)
[2019-09-19 12:52] LABS: AMORPHOUS SEDIMENT >1+ /lpf (NONE SEEN)
== END 2019-09-19 13:45 | disposition home or self-care (01) ==
LOC: D.LDO 11:20
PROVIDERS: ATTEND Obstetrics & Gynecology
DX: O26.899 Other specified pregnancy related conditions, unspecified trimester (principal); Z3A.00 Weeks of gestation of pregnancy not specified; M54.5 Low back pain; R10.30 Lower abdominal pain, unspecified; R20.0 Anesthesia of skin

== ENCOUNTER → 2019-10-10 14:49 | Outpatient (CLI) | payer MEDICAID ==
[2019-07-10 19:46] VITALS: BMI 35.6
[2019-10-10 16:05] LABS: BACTERIA MANY /hpf (NONE SEEN); BILIRUBIN NEGATIVE (NEGATIVE); EPITHELIAL CELLS OCC /hpf (0-5); KETONE NEGATIVE (NEGATIVE); NITRITE NEGATIVE (NEGATIVE); RED CELLS - URINE NONE SEEN /hpf (0-5); UROBILINOGEN NORMAL (NORMAL)
[2019-10-10 16:11] LABS: UDS - AMPHET NEGATIVE QUAL (NEGATIVE); UDS - BARB NEGATIVE QUAL (NEGATIVE); UDS - BENZO NEGATIVE QUAL (NEGATIVE); UDS - COCAINE NEGATIVE QUAL (NEGATIVE); UDS - OPIATE NEGATIVE QUAL (NEGATIVE); UDS - PCP NEGATIVE QUAL (NEGATIVE); UDS - THC NEGATIVE QUAL (NEGATIVE)
== END | disposition home or self-care (01) ==
LOC: D.LDO 14:49
PROVIDERS: ATTEND Obstetrics & Gynecology
DX: O26.899 Other specified pregnancy related conditions, unspecified trimester (principal); M54.9 Dorsalgia, unspecified; R10.2 Pelvic and perineal pain

== ENCOUNTER → 2019-10-12 19:50 | Outpatient (CLI) | payer MEDICAID ==
[2019-07-10 19:46] VITALS: BMI 35.6
== END | disposition home or self-care (01) ==
LOC: D.LDO 19:50
PROVIDERS: ATTEND Student in an Organized Health Care Education/Training Program
DX: Z34.93 Encounter for supervision of normal pregnancy, unspecified, third trimester (principal)

== ENCOUNTER → 2019-10-14 13:48 | Outpatient (CLI) | payer MEDICAID ==
[2019-07-10 19:46] VITALS: BMI 35.6
== END | disposition home or self-care (01) ==
LOC: D.LDO 13:48
PROVIDERS: ATTEND Obstetrics & Gynecology
DX: O26.899 Other specified pregnancy related conditions, unspecified trimester (principal); R30.9 Painful micturition, unspecified

== ENCOUNTER 2019-10-19 17:01 | Outpatient (CLI) | payer MEDICAID ==
[2019-07-10 19:46] VITALS: BMI 35.6
[2019-10-19 18:31] LABS: BASOPHILS 0.1 % (0-2); EOSINOPHILS 0.9 % (0-7); HEMATOCRIT 30.3 % (36.0-48.0); HEMOGLOBIN 9.1 g/dL (12-16); IMMATURE GRANULOCYTES 0.5 % (0-5); LYMPHOCYTES 21.2 % (15-50); MCH 21.8 pg (26.0-34.0); MCV 72.5 fL (80.0-100.0); MEAN PLATELET VOLUME 9.9 fL (7.4-10.4); NEUTROPHILS 71.3 % (40-80); PLATELET COUNT 258 10x3/uL (130-400); RBC 4.18 10x6/uL (4.00-5.40); RDW 16.8 % (11.5-14.5); WBC 10.1 10x3/uL (4.8-10.8)
[2019-10-19 18:49] LABS: CALC OSMOLALITY 265 mosm/kg (275-300); CALCIUM 8.7 mg/dL (8.5-10.1); CARBON DIOXIDE 22.1 mmol/L (21.0-32.0); CHLORIDE - SERUM 102 mmol/L (98-107); CREATININE - SERUM 0.4 mg/dL (0.6-1.3); GLUCOSE 87 mg/dL (74-106); POTASSIUM - SERUM 3.2 mmol/L (3.5-5.1); SODIUM 135 mmol/L (136-145); UREA NITROGEN 5 mg/dL (7-18); eGFR NON AFRICAN AMERICAN > 90 mL/min (90-120)
[2019-10-19 18:51] LABS: AMYLASE - SERUM 87 U/L (25-115); LIPASE 72 U/L (73-393)
== END 2019-10-19 22:21 | disposition home or self-care (01) ==
LOC: D.LDO 17:01 → D.LABREF 17:01 → D.LDO 22:21
PROVIDERS: ATTEND Obstetrics & Gynecology
DX: O24.419 Gestational diabetes mellitus in pregnancy, unspecified control (principal)

== ENCOUNTER 2019-10-24 14:30 | Outpatient (CLI) | payer MEDICAID ==
[2019-07-10 19:46] VITALS: BMI 35.6
== END 2019-10-24 15:50 | disposition home or self-care (01) ==
LOC: D.LDO 14:30
PROVIDERS: ATTEND Obstetrics & Gynecology
DX: O26.899 Other specified pregnancy related conditions, unspecified trimester (principal); Z3A.00 Weeks of gestation of pregnancy not specified

== ENCOUNTER 2019-10-26 11:36 | Outpatient (CLI) | payer MEDICAID ==
[2019-07-10 19:46] VITALS: BMI 35.6
== END 2019-10-26 12:12 | disposition home or self-care (01) ==
LOC: D.LDO 11:36
PROVIDERS: ATTEND Obstetrics & Gynecology
DX: O24.419 Gestational diabetes mellitus in pregnancy, unspecified control (principal)

== ENCOUNTER 2019-11-02 14:27 | Outpatient (CLI) | payer MEDICAID ==
[2019-07-10 19:46] VITALS: BMI 35.6
[2019-11-02 16:47] LABS: BASOPHILS 0.3 % (0-2); EOSINOPHILS 0.8 % (0-7); HEMATOCRIT 31.3 % (36.0-48.0); HEMOGLOBIN 9.5 g/dL (12-16); IMMATURE GRANULOCYTES 0.3 % (0-5); LYMPHOCYTES 25.4 % (15-50); MCH 21.8 pg (26.0-34.0); MCHC 30.4 g/dL (31.0-37.0); NEUTROPHILS 67.2 % (40-80); PLATELET COUNT 230 10x3/uL (130-400); RBC 4.35 10x6/uL (4.00-5.40); WBC 11.7 10x3/uL (4.8-10.8)
[2019-11-02 18:15] LABS: ALBUMIN 2.6 g/dL (3.4-5.0); ALKALINE PHOSPHATASE 139 U/L (30-120); ALT (SGPT) 14 U/L (10-68); AMYLASE - SERUM 73 U/L (25-115); BILIRUBIN - TOTAL 0.56 mg/dL (0.2-1.3); CALC OSMOLALITY 265 mosm/kg (275-300); CALCIUM 8.6 mg/dL (8.5-10.1); CHLORIDE - SERUM 102 mmol/L (98-107); CREATININE - SERUM 0.4 mg/dL (0.6-1.3); GLUCOSE 72 mg/dL (74-106); LIPASE 71 U/L (73-393); POTASSIUM - SERUM 3.8 mmol/L (3.5-5.1); PROTEIN - SERUM 6.8 g/dL (6.4-8.2); SODIUM 135 mmol/L (136-145); UREA NITROGEN 3 mg/dL (7-18); eGFR NON AFRICAN AMERICAN > 90 mL/min (90-120)
== END 2019-11-02 21:10 | disposition home or self-care (01) ==
LOC: D.LDO 14:27
PROVIDERS: ATTEND Obstetrics & Gynecology
DX: O35.9XX0 Maternal care for (suspected) fetal abnormality and damage, unspecified, not applicable or unspecified (principal)

== ENCOUNTER 2019-11-06 23:36 | Outpatient (CLI) | payer MEDICAID ==
[2019-07-10 19:46] VITALS: BMI 35.6
[2019-11-06 23:56] LABS: BILIRUBIN NEGATIVE (NEGATIVE); KETONE NEGATIVE (NEGATIVE); NITRITE NEGATIVE (NEGATIVE); UROBILINOGEN 4 mg/dL (< 2)
[2019-11-07] MEDS ORDERED: GLYBURIDE2.5 MG (00:01)
== END 2019-11-07 01:17 ==
LOC: D.LDO 23:36 → D.LD 23:37 → D.LDO 11-07 01:17
PROVIDERS: ATTEND Obstetrics & Gynecology
DX: O47.9 False labor, unspecified (principal)

== ENCOUNTER 2019-11-09 12:03 | Outpatient (CLI) | payer MEDICAID ==
[2019-07-10 19:46] VITALS: BMI 35.6
[~2019-11-09 12:03] MED LIST changes: +GLYBURIDE2.5 MG
== END 2019-11-09 18:06 | disposition home or self-care (01) ==
LOC: D.LDO 12:03
PROVIDERS: ATTEND Obstetrics & Gynecology
DX: O24.419 Gestational diabetes mellitus in pregnancy, unspecified control (principal)

== ENCOUNTER 2019-11-11 02:06 | Outpatient (CLI) | payer MEDICAID ==
[2019-07-10 19:46] VITALS: BMI 35.6
[2019-11-11 04:10] LABS: BASOPHILS 0.2 % (0-2); EOSINOPHILS 1.1 % (0-7); HEMATOCRIT 30.5 % (36.0-48.0); HEMOGLOBIN 9.1 g/dL (12-16); IMMATURE GRANULOCYTES 0.6 % (0-5); LYMPHOCYTES 28.2 % (15-50); MCH 21.1 pg (26.0-34.0); MCHC 29.8 g/dL (31.0-37.0); MCV 70.6 fL (80.0-100.0); MEAN PLATELET VOLUME 10.1 fL (7.4-10.4); MONOCYTES 7.9 % (2-11); PLATELET COUNT 227 10x3/uL (130-400); RBC 4.32 10x6/uL (4.00-5.40); RDW 17.2 % (11.5-14.5); WBC 8.8 10x3/uL (4.8-10.8)
[2019-11-11 04:17] LABS: BILIRUBIN NEGATIVE (NEGATIVE); KETONE NEGATIVE (NEGATIVE); NITRITE NEGATIVE (NEGATIVE); UROBILINOGEN NORMAL mg/dL (< 2)
[2019-11-11 04:18] LABS: BACTERIA MODERATE HPF (NONE SEEN); EPITHELIAL CELLS 0-5 /hpf (0-5)
[2019-11-12 07:15] LABS: RAPID PLASMA REAGIN Non Reactive (Non Reactive)
== END 2019-11-11 08:00 | disposition home or self-care (01) ==
LOC: D.LDO 02:06
PROVIDERS: ATTEND Obstetrics & Gynecology
DX: O47.9 False labor, unspecified (principal)

== ENCOUNTER 2019-11-12 14:03 | Outpatient (CLI) | payer MEDICAID ==
[2019-07-10 19:46] VITALS: BMI 35.6
[2019-11-12 15:32] LABS: BASOPHILS 0.2 % (0-2); EOSINOPHILS 0.7 % (0-7); HEMATOCRIT 31.2 % (36.0-48.0); HEMOGLOBIN 9.4 g/dL (12-16); IMMATURE GRANULOCYTES 0.4 % (0-5); LYMPHOCYTES 20.6 % (15-50); MCH 21.6 pg (26.0-34.0); MCHC 30.1 g/dL (31.0-37.0); MCV 71.6 fL (80.0-100.0); MEAN PLATELET VOLUME 10.2 fL (7.4-10.4); NEUTROPHILS 70.1 % (40-80); PLATELET COUNT 234 10x3/uL (130-400); RBC 4.36 10x6/uL (4.00-5.40); RDW 17.4 % (11.5-14.5); WBC 10.4 10x3/uL (4.8-10.8)
== END 2019-11-12 20:15 ==
LOC: D.LDO 14:03
PROVIDERS: ATTEND Student in an Organized Health Care Education/Training Program
DX: O35.9XX0 Maternal care for (suspected) fetal abnormality and damage, unspecified, not applicable or unspecified (principal); O24.419 Gestational diabetes mellitus in pregnancy, unspecified control

== ENCOUNTER 2019-11-16 14:19 | Outpatient (CLI) | payer MEDICAID ==
[2019-07-10 19:46] VITALS: BMI 35.6
== END 2019-11-16 14:56 | disposition home or self-care (01) ==
LOC: D.LDO 14:19
PROVIDERS: ATTEND Obstetrics & Gynecology
DX: O24.419 Gestational diabetes mellitus in pregnancy, unspecified control (principal)

== ENCOUNTER 2019-11-18 14:30 | Outpatient (CLI) | payer MEDICAID ==
[2019-07-10 19:46] VITALS: BMI 35.6
[2019-11-18 15:27] LABS: BACTERIA MODERATE HPF (NONE SEEN); BILIRUBIN NEGATIVE (NEGATIVE); EPITHELIAL CELLS 0-5 /hpf (0-5); KETONE SMALL mg/dL (NEGATIVE); NITRITE NEGATIVE (NEGATIVE); UROBILINOGEN 4 mg/dL (< 2)
== END 2019-11-18 17:15 | disposition home or self-care (01) ==
LOC: D.LDO 14:30
PROVIDERS: ATTEND Obstetrics & Gynecology
DX: O47.1 False labor at or after 37 completed weeks of gestation (principal); R11.2 Nausea with vomiting, unspecified

== ENCOUNTER 2019-11-21 01:12 | Outpatient (CLI) | payer MEDICAID ==
[2019-07-10 19:46] VITALS: BMI 35.6
[2019-11-21 01:33] LABS: BILIRUBIN NEGATIVE (NEGATIVE); KETONE NEGATIVE (NEGATIVE); NITRITE NEGATIVE (NEGATIVE); UROBILINOGEN NORMAL mg/dL (< 2)
[2019-11-21 01:39] LABS: UDS - AMPHET NEGATIVE QUAL (NEGATIVE); UDS - BARB NEGATIVE QUAL (NEGATIVE); UDS - BENZO NEGATIVE QUAL (NEGATIVE); UDS - COCAINE NEGATIVE QUAL (NEGATIVE); UDS - OPIATE NEGATIVE QUAL (NEGATIVE); UDS - PCP NEGATIVE QUAL (NEGATIVE); UDS - THC NEGATIVE QUAL (NEGATIVE)
== END 2019-11-21 02:38 ==
LOC: D.LDO 01:12
PROVIDERS: ATTEND Obstetrics & Gynecology
DX: O26.899 Other specified pregnancy related conditions, unspecified trimester (principal); Z3A.00 Weeks of gestation of pregnancy not specified

== ENCOUNTER 2019-11-22 11:00 | Outpatient (CLI) | payer MEDICAID ==
[2019-07-10 19:46] VITALS: BMI 35.6
== END 2019-11-22 12:20 | disposition home or self-care (01) ==
LOC: D.LDO 11:00
PROVIDERS: ATTEND Obstetrics & Gynecology
DX: O24.419 Gestational diabetes mellitus in pregnancy, unspecified control (principal)

== ENCOUNTER 2019-11-24 17:51 | Outpatient (CLI) | payer MEDICAID ==
[2019-07-10 19:46] VITALS: BMI 35.6
== END 2019-11-24 18:39 | disposition home or self-care (01) ==
LOC: D.LDO 17:51
PROVIDERS: ATTEND Obstetrics & Gynecology
DX: O24.419 Gestational diabetes mellitus in pregnancy, unspecified control (principal)

== ENCOUNTER 2019-11-26 13:15 | Outpatient (CLI) | payer MEDICAID ==
[2019-07-10 19:46] VITALS: BMI 35.6
== END 2019-11-26 14:00 | disposition home or self-care (01) ==
LOC: D.LDO 13:15
PROVIDERS: ATTEND Obstetrics & Gynecology
DX: O24.419 Gestational diabetes mellitus in pregnancy, unspecified control (principal)

== ENCOUNTER 2020-06-02 17:34 | Emergency (ER) | payer MEDICAID ==
[~2020-06-02] VITALS: Ht 167.6 cm; Wt 100.0 kg
[2020-06-02 17:41] VITALS: Ht 167.6 cm; Wt 100.0 kg
[2020-06-02 18:04] LABS: BASOPHILS 0.3 % (0-2); EOSINOPHILS 1.6 % (0-7); HEMATOCRIT 34.8 % (36.0-48.0); HEMOGLOBIN 11.1 g/dL (12-16); IMMATURE GRANULOCYTES 0.3 % (0-5); LYMPHOCYTE ABS# 2.42 10x3/uL (1.18-3.74); LYMPHOCYTES 32.1 % (15-50); MCH 24.1 pg (26.0-34.0); MCHC 31.9 g/dL (31.0-37.0); MCV 75.7 fL (80.0-100.0); MEAN PLATELET VOLUME 9.7 fL (7.4-10.4); MONOCYTES 6.8 % (2-11); NEUTROPHIL ABS# 4.45 10x3/uL (1.56-6.13); NEUTROPHILS 58.9 % (40-80); PLATELET COUNT 271 10x3/uL (130-400); RDW 14.4 % (11.5-14.5); WBC 7.5 10x3/uL (4.8-10.8)
[2020-06-02 18:10] LABS: BILIRUBIN NEGATIVE (NEGATIVE); KETONE NEGATIVE (NEGATIVE); NITRITE NEGATIVE (NEGATIVE); UROBILINOGEN NORMAL mg/dL (< 2)
[2020-06-02 18:13] LABS: BACTERIA MANY HPF (NONE SEEN); SQUAMOUS EPITHELIAL 0-5 HPF (0-4)
[2020-06-02 18:15] LABS: HCG URINE POSITIVE (NEGATIVE)
[2020-06-02 18:20] LABS: CALC OSMOLALITY 266 mosm/kg (275-300); CALCIUM 9.2 mg/dL (8.5-10.1); CARBON DIOXIDE 25.8 mmol/L (21.0-32.0); CHLORIDE - SERUM 100 mmol/L (98-107); CREATININE - SERUM 0.5 mg/dL (0.6-1.3); POTASSIUM - SERUM 3.7 mmol/L (3.5-5.1); SODIUM 134 mmol/L (136-145); UREA NITROGEN 8 mg/dL (7-18); eGFR NON AFRICAN AMERICAN > 90 mL/min (90-120)
[2020-06-02 18:21] LABS: GLUCOSE 118 mg/dL (74-106)
[2020-06-02 18:44] LABS: ALBUMIN 3.4 g/dL (3.4-5.0); ALKALINE PHOSPHATASE 90 U/L (30-120); ALT (SGPT) 43 U/L (10-68); BILIRUBIN - TOTAL 0.19 mg/dL (0.2-1.3); HCG - QUANTITATIVE (MATERNAL) 104415 mIU/mL
[2020-06-02] MEDS ORDERED: MACROBID100 MG PO (20:33)
[2020-06-02 20:48] VITALS: BP 117/69
== END 2020-06-02 20:48 | disposition home or self-care (01) ==
LOC: D.ER 17:34
PROVIDERS: Emergency Medicine
DX: O23.11 Infections of bladder in pregnancy, first trimester (principal); O34.11 Maternal care for benign tumor of corpus uteri, first trimester; R11.2 Nausea with vomiting, unspecified; R07.9 Chest pain, unspecified; R06.02 Shortness of breath; Z3A.10 10 weeks gestation of pregnancy

== ENCOUNTER 2020-08-03 16:28 | Emergency (ER) | payer MEDICAID ==
[~2020-08-03] VITALS: Ht 167.6 cm; Wt 68.2 kg
[2020-08-03 16:40] VITALS: Ht 167.6 cm; Wt 68.2 kg
[2020-08-03 17:16] LABS: BASOPHILS 0.7 % (0-2); EOSINOPHILS 1.8 % (0-7); HEMATOCRIT 34.5 % (36.0-48.0); HEMOGLOBIN 11.1 g/dL (12-16); LYMPHOCYTES 31.8 % (15-50); MCH 24.5 pg (26.0-34.0); MCHC 32.1 g/dL (31.0-37.0); MCV 76.4 fL (80.0-100.0); MONOCYTES 5.6 % (2-11); NEUTROPHILS 60.1 % (40-80); PLATELET COUNT 224 10x3/uL (130-400); RBC 4.51 10x6/uL (4.00-5.40); RDW 15.6 % (11.5-14.5); WBC 5.5 10x3/uL (4.8-10.8)
[2020-08-03 17:21] LABS: CALC OSMOLALITY 275 mosm/kg (275-300); CALCIUM 8.6 mg/dL (8.5-10.1); CARBON DIOXIDE 24.3 mmol/L (21.0-32.0); CHLORIDE - SERUM 104 mmol/L (98-107); CREATININE - SERUM 0.5 mg/dL (0.6-1.3); GLUCOSE 126 mg/dL (74-106); POTASSIUM - SERUM 3.2 mmol/L (3.5-5.1); SODIUM 138 mmol/L (136-145); UREA NITROGEN 6 mg/dL (7-18); eGFR NON AFRICAN AMERICAN > 90 mL/min (90-120)
[2020-08-03 17:51] LABS: ALBUMIN 2.9 g/dL (3.4-5.0); ALKALINE PHOSPHATASE 78 U/L (30-120); ALT (SGPT) 15 U/L (10-68); BILIRUBIN - TOTAL 0.34 mg/dL (0.2-1.3); HCG - QUANTITATIVE (MATERNAL) 18987 mIU/mL; LIPASE 58 U/L (73-393); PROTEIN - SERUM 7.4 g/dL (6.4-8.2)
[2020-08-03 18:46] LABS: BILIRUBIN NEGATIVE (NEGATIVE); KETONE NEGATIVE mg/dL (< 1+); NITRITE NEGATIVE (NEGATIVE); SQUAMOUS EPITHELIAL 12 HPF (0-4); UROBILINOGEN 4 mg/dL (< 2); WHITE CELLS - URINE 5 HPF (0-4)
[2020-08-03 19:26] VITALS: BP 110/61
[2020-08-03] MEDS ORDERED: MACROBID100 MG PO (22:56)
== END 2020-08-03 23:08 | disposition home or self-care (01) ==
LOC: D.ER 16:28
PROVIDERS: Family Medicine
DX: O99.511 Diseases of the respiratory system complicating pregnancy, first trimester (principal); E87.6 Hypokalemia; O34.11 Maternal care for benign tumor of corpus uteri, first trimester; O23.41 Unspecified infection of urinary tract in pregnancy, first trimester; Z3A.10 10 weeks gestation of pregnancy; R68.89 Other general symptoms and signs; B34.9 Viral infection, unspecified; R11.10 Vomiting, unspecified; J06.9 Acute upper respiratory infection, unspecified